=== PATIENT | male | born 1995 | race Caucasian/White ===

== ENCOUNTER 2020-12-11 10:11 | Emergency (ER) | payer MEDICAID ==
[~2020-12-11] VITALS: Ht 175.3 cm; Wt 68.0 kg
[2020-12-11] MEDS ORDERED: IBUPROFEN 600MG TABLET PO ONE (10:30)
[2020-12-11 10:35] VITALS: BP 118/82
[2020-12-11] MEDS ORDERED: IBUP-2028 MT (10:35)
== END 2020-12-11 10:46 | disposition home or self-care (01) ==
LOC: ER 10:11
DX: M54.5 Low back pain (principal)
CPT/HCPCS: 99283